=== PATIENT | female | born 1940 | race Caucasian/White ===

== ENCOUNTER 2017-09-05 03:38 | Emergency (ER) | payer MEDICARE ==
[~2017-09-05] VITALS: Ht 177.8 cm; Wt 77.8 kg
[2017-09-05] MEDS ORDERED: PROMETHAZINE 25 MG/ML, 1ML ONE (04:08)
[2017-09-05] MEDS ORDERED: PROMETHAZINE 25 MG/ML, 1ML IM ONE (04:30)
[2017-09-05 05:07] VITALS: BP 106/57
== END 2017-09-05 05:22 | disposition home or self-care (01) ==
LOC: ED 05:16
DX: R11.2 Nausea with vomiting, unspecified (principal)
CPT/HCPCS: 96372; 99283; J2550

== ENCOUNTER → 2018-04-23 | Outpatient (CLI) | payer MEDICARE | END | disposition home or self-care (01) | LOC: CFH 08:42 | PROVIDERS: ATTEND Nurse Practitioner Family | DX: M51.36 Other intervertebral disc degeneration, lumbar region (principal) | CPT/HCPCS: 72110 ==